=== PATIENT | female | born 1990 | race Caucasian/White ===

== ENCOUNTER 2016-08-26 05:25 | Emergency (ER) | payer BC, OTHER ==
[~2016-08-26 05:25] MED LIST: ALBUTEROL17 GM INH; DICLOFENAC SODI50 MG PO; LEVAQUIN25 MG/ML PO; MEDROL DOSEPAK4 MG PO; MULTI-VITAMIN1 TAB; NO MEDICATIONS; PREDNISONE PO; PRENATAL VITAMINS; TYLOX 5/500 CAP1 CAP PO
== END 2016-08-26 05:48 | disposition left against medical advice (07) ==
LOC: CED 05:25
DX: R10.11 Right upper quadrant pain (principal); R68.83 Chills (without fever)
CPT/HCPCS: 84703; 99284

== ENCOUNTER → 2017-02-13 | Outpatient (CLI) | payer OTHER ==
--- NOTE | ~2017-02-13 | US6 ---
[facility] A Service of [facility] RADIOLOGY TEXT RESULTS PATIENT: JESSICA PEREYRA LOCATION: [facility] : [birth year] UNIT #: [id number] AGE: [address]: Cj Nunn III, MD SEX: F ORDER DR: [id number] [facility] [address] [facility] [place], [place] [address] [id number] O MR#: [id number] Acc #: [id number] NAME: JESSICA PEREYRA : 1990 SEX: F STUDY DATE/TIME: 02/13/2017 13:51 UNIT: [facility] ROOM: STUDY DESCRIPTION: US Abdominal Limited Attending Physician: Cj Nunn III, M.D. Referring Physician: Cj Nunn III, M.D. Ordering Physician: Cj Nunn III, M.D. Primary Care Physician: Arjun Walters M.D. MEDICAL IMAGING REPORT This report is preliminary unless electronic signature is present EXAM Right upper quadrant ultrasound HISTORY Right upper quadrant pain, chronic for years. FINDINGS Ultrasound examination of the right upper quadrant demonstrates the liver parenchyma is coarsened and echogenic, suggesting fatty infiltration of the liver. No hepatic mass. No biliary ductal dilatation. Multiple gallstones measure up to 1.3 cm. No gallbladder distension or wall thickening. The common bile duct measures 6 mm in diameter. No fluid adjacent to the gallbladder. Survey of the right kidney is negative. No right renal mass or hydronephrosis. IMPRESSION 1. Multiple gallstones measure up to 1.3 cm. 2. No gallbladder distension or gallbladder wall thickening. 3. Coarsened and echogenic hepatic parenchyma characteristic of fatty infiltration of the liver. Dictated by... Siddhartha Donnelly M.D. THIS IS AN ELECTRONICALLY VERIFIED REPORT Siddhartha Donnelly M.D. at 02/14/2017 2:26 PM Adrian TD: 02/14/2017 10:44 JOB #: [id number] MEDICAL IMAGING REPORT Page 1 of 1 COPY
== END | disposition home or self-care (01) ==
LOC: CGUS 13:09
DX: R10.11 Right upper quadrant pain (principal); K80.20 Calculus of gallbladder without cholecystitis without obstruction; R93.2 Abnormal findings on diagnostic imaging of liver and biliary tract; K76.0 Fatty (change of) liver, not elsewhere classified
CPT/HCPCS: 76705

== ENCOUNTER → 2017-02-21 | Outpatient (CLI) | payer OTHER | END | disposition home or self-care (01) | LOC: CBAR 08:23 | DX: Z01.818 Encounter for other preprocedural examination (principal); E66.01 Morbid (severe) obesity due to excess calories | CPT/HCPCS: 36415; 84443; 86677; G0463 ==